=== PATIENT | male | born 1945 | race Caucasian/White ===

== ENCOUNTER → 2017-11-26 | Outpatient (CLI) | payer MEDICARE, BC ==
--- NOTE | 2017-11-26 16:09 | XR ---
EXAMINATION TYPE: XR foot complete RT DATE OF EXAM: 11/26/2017 CLINICAL HISTORY: Injury to right foot 3 weeks ago worse over first toe TECHNIQUE: Frontal, lateral, and oblique images of the right foot are obtained. COMPARISON: None FINDINGS: There is no acute fracture/dislocation evident in the right foot. There is flexion and benjamin us positioning distal third through fifth toes. There is moderate to severe joint space loss with mil d to moderate lateral spurring first metatarsophalangeal joint. There is small inferior calcaneal spu r. Overlying soft tissue is unremarkable. IMPRESSION: There is no acute fracture or dislocation in the right foot.
== END | disposition home or self-care (01) ==
LOC: RADXRMAIN 14:20
PROVIDERS: ATTEND Internal Medicine
DX: M79.671 Pain in right foot (principal); Z87.828 Personal history of other (healed) physical injury and trauma

== ENCOUNTER → 2019-03-17 | Outpatient (CLI) | payer MEDICARE, BC ==
--- NOTE | 2019-03-17 10:58 | XR ---
EXAMINATION TYPE: XR KUB DATE OF EXAM: 03/17/2019 9:43 AM CLINICAL HISTORY: Hematuria TECHNIQUE: Single supine KUB image of the abdomen is obtained. COMPARISON: None. FINDINGS: 5 mm calculus is seen overlying the left renal shadow. No calculi are noted overlying the right renal shadow. Phlebolith is seen within the left hemipelvis with central lucency. There is a mild levoscoliosis of the lumbar spine and mild degenerative disc disease. Surgical clips are seen within the low pelvis. Osseous structures appear intact with moderate degenerative changes o f the hips. No dilated large or small bowel. Lung bases are well aerated. Slight right hemidiaphragm elevation may be physiologic. IMPRESSION: Left renal calculus measures approximately 5 mm. No renal calculi or suspicious pelvic ca lculi are seen.
== END | disposition home or self-care (01) ==
LOC: RADXRMAIN 09:32
PROVIDERS: ATTEND Urology
DX: N20.0 Calculus of kidney (principal)
CPT/HCPCS: 74018

== ENCOUNTER → 2019-04-06 | Outpatient (CLI) | payer MEDICARE, BC ==
--- NOTE | 2019-04-06 16:06 | CT ---
EXAMINATION TYPE: CT abdomen pelvis wo con DATE OF EXAM: 04/06/2019 COMPARISON: None HISTORY: 73-year-old male blood in urine for 3 weeks, history prostate ca CT DLP: 448 mGycm. Automated exposure control for dose reduction was used. TECHNIQUE: Contiguous axial scanning of the abdomen and pelvis without IV contrast. Coronal and sagit mino reconstructions performed. FINDINGS: Heart normal size without pericardial effusion. Lung bases clear without pleural effusion. An emphyse matous cyst is noted in the right lower lobe. Liver enlarged at 18.3 cm. Low-attenuation suggest underlying fatty infiltration. 6 mm gallstone. No abnormal gallbladder distention. Adrenal glands, spleen, and pancreas show no gross antibody by noncontrast CT. Numerous hypodense lesions are present within the kidneys, largest in the left upper pole measures 5. 0 cm and on the right measuring 3.8 cm. These all appear to be cysts. A vague intermediate density ar ea measuring 6 mm along the lateral mid pole of the left kidney can be reassessed in 6 months, axial image 58. There is mild right-sided pelvocaliectasis/hydronephrosis and asymmetric prominence to the right uret er but without any suspicious calcifications seen along the course of the right ureter. 7 mm nonobstructive calculus in the left kidney. No dilated small bowel, free fluid, or free air. No mesenteric or retroperitoneal lymphadenopathy. Normal appendix. Mild to moderate stool burden. No pericolonic inflammatory change. Moderate circumferential bladder wall thickening. Prostate gland surgically absent. Surgical clips ar e present in the pelvis. No pelvic lymphadenopathy. No abnormal fluid collection in the pelvis. Bones mild degenerative changes at the hips. Degenerative disc disease L5-S1. Rightward truncal shift could be secondary to underlying spinal curvature. IMPRESSION: 1. Mild right-sided hydronephrosis and right-sided hydroureter but no obstructing calculus seen. Find ings may reflect a recently passed stone, underlying urinary tract infection, or a urothelial lesion of the distal right ureter. Clinically correlate. Further workup as indicated. 2. Numerous bilateral renal lesions measuring up to 5.0 cm on the left and 3.8 cm on the right. Benig n bilateral cysts are suspected. A vague, indeterminate 6 mm density lateral mid pole of the left kid cira should be reassessed in 6 months. 3. Nonobstructive 7 mm left renal calculus. 4. Moderate circumferential bladder wall thickening could represent chronic bladder wall hypertrophy, posttreatment change, or cystitis. 5. Status post prostatectomy. Cholelithiasis. Mild hepatomegaly (18.3 cm) with mild fatty infiltratio n. Underlying emphysema.
== END | disposition home or self-care (01) ==
LOC: RADCTMAIN 14:52
PROVIDERS: ATTEND Urology
DX: N13.30 Unspecified hydronephrosis (principal); N28.9 Disorder of kidney and ureter, unspecified; N20.0 Calculus of kidney; N32.89 Other specified disorders of bladder; K80.20 Calculus of gallbladder without cholecystitis without obstruction; K76.0 Fatty (change of) liver, not elsewhere classified; Z90.79 Acquired absence of other genital organ(s)
CPT/HCPCS: 74176

== ENCOUNTER → 2019-05-17 | Outpatient (CLI) | payer MEDICARE, BC ==
--- NOTE | 2019-05-17 12:41 | US ---
EXAMINATION TYPE: US kidneys/renal and bladder DATE OF EXAM: 05/17/2019 COMPARISON: CT dated 04/06/2019 CLINICAL HISTORY: R93.4 HX OF HYDRONEPHROSIS. EXAM MEASUREMENTS: Right Kidney: 10.5 x 4.8 x 4.6 cm Left Kidney: 12.0 x 5.7 x 5.5 cm Right Kidney: multiple cysts, largest 2.9 x 2.8 x 3.6 cm Left Kidney: largest cyst measures 4.8 x 3.5 x 4.1 cm Bladder: not well distended Bilateral Jets seen: No There is no evidence for hydronephrosis at this point in time. No nephrolithiasis is seen. The urin jose bladder is anechoic but incompletely distended. Bilateral ureteral jets are not seen. IMPRESSION: No sonographic evidence of hydronephrosis of either kidney. Numerous bilateral renal cyst s are seen with the largest measuring up to 4.8 cm on the left.
--- NOTE | 2019-05-17 13:09 | XR ---
EXAMINATION TYPE: XR KUB DATE OF EXAM: 05/17/2019 12:49 PM CLINICAL HISTORY: Left flank pain. History of hydronephrosis. TECHNIQUE: Single supine KUB image of the abdomen is obtained. COMPARISON: Ultrasound dated 05/17/[address] dated 04/06/2019. FINDINGS: Postsurgical change of prior prostatectomy. Radiolucent phlebolith within the left hemipelv is. Redemonstration of the 6 mm left renal calculus. No radiopaque capsule overlying the right renal shadow. Levoscoliosis of the thoracolumbar spine is seen. No dilated large or small bowel. IMPRESSION: Redemonstration of a 6 mm left renal calculus. No radiopaque right renal calculi. No new calculi along the courses of the ureters or within the urinary bladder.
== END | disposition home or self-care (01) ==
LOC: RADUSWWP 11:48
PROVIDERS: ATTEND Urology
DX: N28.1 Cyst of kidney, acquired (principal); Z87.448 Personal history of other diseases of urinary system; N20.0 Calculus of kidney
CPT/HCPCS: 74018; 76770

== ENCOUNTER → 2021-03-14 | Outpatient (CLI) | payer MEDICARE, BC | END | disposition home or self-care (01) | LOC: LABWHC1 09:08 | PROVIDERS: ATTEND Urology | DX: C61 Malignant neoplasm of prostate (principal); R97.21 Rising PSA following treatment for malignant neoplasm of prostate | CPT/HCPCS: 36415; 84153 ==

== ENCOUNTER → 2022-03-12 | Outpatient (CLI) | payer MEDICARE, BC | END | disposition home or self-care (01) | LOC: LABWHC1 08:59 | PROVIDERS: ATTEND Urology | DX: C61 Malignant neoplasm of prostate (principal); R97.21 Rising PSA following treatment for malignant neoplasm of prostate | CPT/HCPCS: 36415; 84153 ==

== ENCOUNTER → 2023-03-18 | Outpatient (CLI) | payer MEDICARE, BC | END | disposition home or self-care (01) | LOC: LABWHC1 08:00 | PROVIDERS: ATTEND Urology | DX: C61 Malignant neoplasm of prostate (principal) | CPT/HCPCS: 36415; 84153 ==

== ENCOUNTER → 2023-08-26 | Outpatient (CLI) | payer MEDICARE, BC ==
--- NOTE | 2023-08-26 15:56 | XR ---
EXAMINATION TYPE: XR KUB DATE OF EXAM: 08/26/2023 Comparison: 05/17/2019 Clinical History: 77-year-old male N20.0 calculus Findings: A couple calcific densities at the left mid abdomen measuring 6 mm and 4 mm. Unchanged phlebolith in the left side of the pelvis. Surgical clips in both sides of the pelvis. Nonobstructive bowel gas pat tern. Mild stool burden. Impression: A couple left-sided renal calculi measuring 6 mm and 4 mm.
== END | disposition home or self-care (01) ==
LOC: RADXRMAIN 08:41
PROVIDERS: ATTEND Urology
DX: N20.0 Calculus of kidney (principal)
CPT/HCPCS: 74018

== ENCOUNTER → 2023-09-22 | Outpatient (CLI) | payer MEDICARE, BC ==
--- NOTE | 2023-09-23 11:43 | XR ---
EXAMINATION TYPE: XR KUB DATE OF EXAM: 09/22/2023 9:48 AM CLINICAL INDICATION:Male, 77 years old with history of N20.0 CALCULUS OF KIDNEY; MERGED WITH [facility] COMPARISON: 08/26/2023. TECHNIQUE: One radiographic view of the abdomen was obtained. FINDINGS: The bowel gas pattern is nonspecific without dilated loops of small or large bowel. There i s no evidence for organomegaly or pneumoperitoneum. The osseous structures are intact. Fecal mater ial and gas are demonstrated throughout the colon and rectum. Multiple surgical clips project over the pelvis. Left renal calculi measuring up to 5 mm. No right re nal foci visualized. IMPRESSION: 1. Left renal calculi. 2. Nonspecific bowel gas pattern without radiographic evidence for acute process.
== END | disposition home or self-care (01) ==
LOC: RADXRMAIN 09:20
PROVIDERS: ATTEND Urology
DX: N20.0 Calculus of kidney (principal)
CPT/HCPCS: 74018

== ENCOUNTER → 2024-03-12 | Outpatient (CLI) | payer MEDICARE, BC | END | disposition home or self-care (01) | LOC: LABWHC1 08:08 | PROVIDERS: ATTEND Urology | DX: C61 Malignant neoplasm of prostate (principal) | CPT/HCPCS: 36415; 84153 ==

== ENCOUNTER → 2024-04-29 | Outpatient (CLI) | payer MEDICARE, BC ==
[2024-04-29 15:11] LABS: ALT 39 U/L (10-49); AST 24 U/L (14-35); BUN/Creat Ratio 13.38 Ratio (12.00-20.00); Blood Urea Nitrogen 17.4 mg/dL (9.0-27.0); Calcium 9.9 mg/dL (8.7-10.3); Carbon Dioxide 24.7 mmol/L (21.6-31.8); Chloride 102 mmol/L (96-109); Chol/HDL Ratio 5.37 Ratio; Glucose 167 mg/dL (70-110); LDL Cholesterol,Calculated 122.9 mg/dL (0.0-131.0); Potassium 4.6 mmol/L (3.5-5.5); Sodium 140 mmol/L (135-145)
== END | disposition home or self-care (01) ==
LOC: LABWHC1 07:53
PROVIDERS: ATTEND Internal Medicine Cardiovascular Disease
DX: E78.2 Mixed hyperlipidemia (principal)
CPT/HCPCS: 36415; 80048; 80061; 84450; 84460